=== PATIENT | female | born 1955 | race African-American/Black ===

== ENCOUNTER 2017-11-12 11:07 | Observation (INO) | payer OTHER ==
[2017-11-12 11:14] VITALS: BMI 32.1
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
[2017-11-12] MEDS ORDERED: LABETALOL HCL 5 MG/1 ML (100MG/20 ML VIAL) IVPUSH ONE (11:54)
[2017-11-12] MEDS ORDERED: ASPIRIN 81 MG CHEWABLE TABLETS PO ONE (11:54)
[2017-11-12] MEDS ORDERED: ASPIRIN 81 MG CHEWABLE TABLETS ONE (12:23)
[2017-11-12] MEDS ORDERED: LABETALOL HCL 5 MG/1 ML (200MG/40ML VIAL) IVPB ONE (12:23)
[2017-11-12 12:50] LABS: BASO % 0.7 % (0-2.0); EOS % 8.3 % (0-4.5); HEMATOCRIT 37.3 % (32.4-45.2); HEMOGLOBIN 12.1 GM/dL (10.7-15.3); MCH 27.7 pg (25.7-33.7); MCHC 32.5 g/dl (32.0-36.0); MEAN CELL VOLUME 85.2 fl (80-96); MEAN PLT VOLUME 8.1 fl (7.5-11.1); PLATELET COUNT 288 K/MM3 (134-434); RBC 4.38 M/mm3 (3.60-5.2); RDW 15.4 % (11.6-15.6); WHITE BLOOD COUNT 5.1 K/mm3 (4.0-10.0)
[2017-11-12 13:02] LABS: INR 1.07 (0.82-1.09); PROTHROMBIN TIME (PATIENT) 12.1 SEC (9.7-13.0)
[2017-11-12 13:38] LABS: ALBUMIN 3.7 g/dl (3.4-5.0); ANION GAP 5 (8-16); BLOOD UREA NITROGEN 16 mg/dL (7-18); CALCIUM 9.2 mg/dL (8.5-10.1); CHLORIDE 106 mmol/L (98-107); CO2 31 mmol/L (21-32); CREATININE 0.7 mg/dL (0.55-1.02); GLUCOSE,RANDOM 80 mg/dL (74-106); SGPT/ALT 24 U/L (12-78); SODIUM 142 mmol/L (136-145)
[2017-11-12 13:42] LABS: ALK PHOS 89 U/L (45-117); BILIRUBIN,TOTAL 0.3 mg/dL (0.2-1.0); N-TERMINAL BNP 220.95 pg/ml (5-125); TOT PROT 8.5 g/dl (6.4-8.2)
[2017-11-12 13:43] LABS: MAGNESIUM 2.1 mg/dL (1.8-2.4); POTASSIUM 4.6 mmol/L (3.5-5.1); SGOT/AST 30 U/L (15-37)
[2017-11-12 14:32] LABS: URINE APPEARANCE CLEAR; URINE BILIRUBIN NEGATIVE (<2.0 mg/dL); URINE COLOR LTYELLOW; URINE GLUCOSE (UA) NEGATIVE (NEGATIVE); URINE KETONE NEGATIVE (NEGATIVE); URINE LEUK ESTERASE NEGATIVE (NEGATIVE); URINE NITRITE NEGATIVE (NEGATIVE); URINE PROTEIN NEGATIVE (NEGATIVE); URINE UROBILINOGEN NEGATIVE mg/dL (0.2-1.0)
--- NOTE | 2017-11-12 19:07 | HP ---
<Clau Gregorio - Last Filed: 11/12/17 19:13> CHIEF COMPLAINT: HTN, back pain PCP:Dr. Vickers HISTORY OF PRESENT ILLNESS: Patient is a 62 y/o patient with a history of HTN and Hep C (unknown if treated ) who presented from emergency department for HTN of 198/130. She has not seen a PCP in 2 years and is not taking any medications. She reports she has also been having back pain for three weeks. She describes it as sharp in nature and non radiating. Medications do not help it. She has neve had pain like this in the past. Patient has no other complaints today. ER course was notable for: (1) EKG (2) (3) Recent Travel: no PAST MEDICAL HISTORY: HTN, Hep C ( unknown length) PAST SURGICAL HISTORY: R knee Social History: Smoking: denies Alcohol: denies Drugs: denies Family History: Allergies No Known Allergies Allergy (Verified 11/12/17 11:14) HOME MEDICATIONS: Home Medications Medication Instructions Recorded NK [No Known Home Medication] 11/12/17 REVIEW OF SYSTEMS CONSTITUTIONAL: Absent: fever, chills, diaphoresis, generalized weakness, malaise HEENT: Absent: rhinorrhea, nasal congestion, throat pain, CARDIOVASCULAR: Absent: syncope, palpitations, irregular heart rate, lightheadedness, peripheral edema, chest pain RESPIRATORY: Absent: cough, shortness of breath, dyspnea with exertion, orthopnea, GASTROINTESTINAL: Absent: abdominal pain, abdominal distension, nausea, vomiting, diarrhea, constipation MUSCULOSKELETAL: back pain Absent: myalgia, arthralgia, joint swelling, neck pain SKIN: Absent: rash, itching, pallor HEMATOLOGIC/IMMUNOLOGIC: Absent: easy bleeding, easy bruising, lymphadenopathy, NEUROLOGIC: Absent: headache, focal weakness or paresthesias, dizziness, unsteady gait, seizure, mental status changes Absent: anxiety, depression, suicidal or homicidal ideation, hallucinations. PHYSICAL EXAMINATION Vital Signs - 24 hr 11/12/17 11/12/17 11/12/17 11:10 12:40 13:38 Temperature 97.7 F Pulse Rate 84 Pulse Rate [ 69 Apical] Respiratory 18 20 Rate Blood Pressure 197/135 Blood Pressure 155/98 [Right Arm] O2 Sat by Pulse 99 100 100 Oximetry (%) 11/12/17 18:11 Temperature 98.0 F Pulse Rate Pulse Rate [ 95 H Apical] Respiratory 18 Rate Blood Pressure Blood Pressure 157/96 [Right Arm] O2 Sat by Pulse 98 Oximetry (%) GENERAL: Awake, alert, and fully oriented, in no acute distress. HEAD: Normal with no signs of trauma. EYES: Pupils equal, round and reactive to light, extraocular movements intact, sclera anicteric EARS, NOSE, THROAT: Ears normal, nares patent, oropharynx clear without exudates. Moist mucous membranes. NECK: Normal range of motion, supple without lymphadenopathy, LUNGS: Breath sounds equal, clear to auscultation bilaterally. No wheezes, and no crackles. No accessory muscle use. HEART: Regular rate and rhythm, normal S1 and S2 ABDOMEN: Soft, nontender, not distended, normoactive bowel sounds, no guarding, no rebound, no masses. MUSCULOSKELETAL: Normal range of motion at thoracic and lumbar joints, non reproducible pain UPPER EXTREMITIES: 2+ pulses, warm, well-perfused. No cyanosis. No peripheral edema. LOWER EXTREMITIES: 2+ pulses, warm, well-perfused. No calf tenderness. NEUROLOGICAL: Cranial nerves II-XII intact. Normal speech. PSYCHIATRIC: Cooperative. Good eye contact. SKIN: Warm, dry, normal turgor, no rashes or lesions noted Laboratory Results - last 24 hr 11/12/17 11/12/17 11/12/17 12:34 12:41 12:41 WBC 5.1 RBC 4.38 Hgb 12.1 Hct 37.3 MCV 85.2 MCH 27.7 MCHC 32.5 RDW 15.4 Plt Count 288 MPV 8.1 Absolute Neuts (auto) 2.3 Neutrophils % 45.0 Lymphocytes % 37.0 Monocytes % 9.0 Eosinophils % 8.3 H Basophils % 0.7 Nucleated RBC % 0 PT with INR 12.10 INR 1.07 Sodium Potassium Chloride Carbon Dioxide Anion Gap BUN Creatinine Creat Clearance w eGFR Random Glucose Calcium Magnesium Total Bilirubin AST ALT Alkaline Phosphatase Creatine Kinase Troponin I B-Natriuretic Peptide Total Protein Albumin Urine Color Ltyellow Urine Appearance Clear Urine pH 6.0 Ur Specific [place] 1.016 Urine Protein Negative Urine Glucose (UA) Negative Urine Ketones Negative Urine Blood Negative Urine Nitrite Negative Urine Bilirubin Negative Urine Urobilinogen Negative Ur Leukocyte Esterase Negative 11/12/17 11/12/17 12:41 17:30 WBC RBC Hgb Hct MCV MCH MCHC RDW Plt Count MPV Absolute Neuts (auto) Neutrophils % Lymphocytes % Monocytes % Eosinophils % Basophils % Nucleated RBC % PT with INR INR Sodium 142 Potassium 4.6 Chloride 106 Carbon Dioxide 31 Anion Gap 5 L BUN 16 Creatinine 0.7 Creat Clearance w eGFR > 60 Random Glucose 80 Calcium 9.2 Magnesium 2.1 Total Bilirubin 0.3 AST 30 ALT 24 Alkaline Phosphatase 89 Creatine Kinase 147 108 Troponin I 0.02 < 0.02 B-Natriuretic Peptide 220.95 H Total Protein 8.5 H Albumin 3.7 Urine Color Urine Appearance Urine pH Ur Specific [place] Urine Protein Urine Glucose (UA) Urine Ketones Urine Blood Urine Nitrite Urine Bilirubin Urine Urobilinogen Ur Leukocyte Esterase ASSESSMENT/PLAN: Patient is a 62 y/o patient with a history of HTN and Hep C who presented from emergency department for HTN. #HTN -IV lebetalol in ED - lopressor 25 BID - f/u Echo - f/u EKG, irregular changes on last one - F/u cardiac consult Paul - f/u trop, negative x2 - BNP 220.95 - monitor on tele obs - f/u UCX - Chest CTA: no aneyursm or dissection - CXR: no pathology, large heart #Hep C - unknown if treated, friends at bedside #Back pain -Tylenol prn -non reproducible pain Visit type - Emergency Visit Emergency Visit: Yes ED Registration Date: 11/12/17 Care time: The patient presented to the Emergency Department on the above date and was hospitalized for further evaluation of their emergent condition. - New Patient This patient is new to me today: Yes Date on this admission: 11/12/17 - Critical Care Critical Care patient: No Hospitalist Screening - Colonoscopy Questionnaire Colonoscopy Questionnaire: Colonoscopy Questionnaire - Patient: 50 - 75 years old and never had a screening colonoscopy: Unknown History of colon or rectal polyps, or CA: Unknown History of IBD, Crohn's disease or UC: Unknown History of abdominal radiation therapy as a child: Unknown - Relative: 1 with colon or rectal CA, or polyps at age 60 or younger: Unknown Colon or rectal CA diagnosed at age 45 or younger: Unknown Multiple relatives with colon or rectal CA: Unknown - Outcome: Screening Result: Negative Screen <[place] - Last Filed: 11/12/17 21:52> Patient presented with acute diffuse chest pain radiating to her back . CTA was done negative for dissection. Labetolol was given in ED. Presented with blood pressure of 197/135. Currently the BP is better controlled , given Labetelol x 1 dose. will continue with Lopressor since patient is also c/o having Chest pain, r/o ACS , CE q6x2, EKG in am . Cardio consult in am. Vital Signs Temperature 98.0 F 11/12/17 18:11 Pulse Rate 95 H 11/12/17 18:11 Respiratory Rate 18 11/12/17 18:11 Blood Pressure 157/96 11/12/17 18:11 O2 Sat by Pulse Oximetry (%) 98 11/12/17 18:11 CBCD WBC 5.1 K/mm3 (4.0-10.0) 11/12/17 12:41 RBC 4.38 M/mm3 (3.60-5.2) 11/12/17 12:41 Hgb 12.1 GM/dL (10.7-15.3) 11/12/17 12:41 Hct 37.3 % (32.4-45.2) 11/12/17 12:41 MCV 85.2 fl (80-96) 11/12/17 12:41 MCHC 32.5 g/dl (32.0-36.0) 11/12/17 12:41 RDW 15.4 % (11.6-15.6) 11/12/17 12:41 Plt Count 288 K/MM3 (134-434) 11/12/17 12:41 MPV 8.1 fl (7.5-11.1) 11/12/17 12:41 CMP Sodium 142 mmol/L (136-145) 11/12/17 12:41 Potassium 4.6 mmol/L (3.5-5.1) 11/12/17 12:41 Chloride 106 mmol/L (98-107) 11/12/17 12:41 Carbon Dioxide 31 mmol/L (21-32) 11/12/17 12:41 Anion Gap 5 (8-16) L 11/12/17 12:41 BUN 16 mg/dL (7-18) 11/12/17 12:41 Creatinine 0.7 mg/dL (0.55-1.02) 11/12/17 12:41 Creat Clearance w eGFR > 60 (>60) 07/08/18 12:41 Random Glucose 80 mg/dL (74-106) 11/12/17 12:41 Calcium 9.2 mg/dL (8.5-10.1) 11/12/17 12:41 Total Bilirubin 0.3 mg/dL (0.2-1.0) 11/12/17 12:41 AST 30 U/L (15-37) 11/12/17 12:41 ALT 24 U/L (12-78) 11/12/17 12:41 Alkaline Phosphatase 89 U/L (45-117) 11/12/17 12:41 Total Protein 8.5 g/dl (6.4-8.2) H 11/12/17 12:41 Albumin 3.7 g/dl (3.4-5.0) 11/12/17 12:41 CARDIAC ENZYMES Creatine Kinase 108 IU/L (26-192) 11/12/17 17:30 Troponin I < 0.02 ng/ml (0.00-0.05) 11/12/17 17:30 Current Medications Generic Name Dose Route Start Last Admin Trade Name Freq PRN Reason Stop Dose Admin Metoprolol Tartrate 25 mg 11/12/17 22:00 Lopressor - PO BID [facility] Home Medications Medication Instructions Recorded NK [No Known Home Medication] 11/12/17 Hospitalist Screening - Colonoscopy Questionnaire Colonoscopy Questionnaire: Colonoscopy Questionnaire
[2017-11-12] MEDS ORDERED: ACETAMINOPHEN 325 MG TABLET (FP) PO ONE (19:45)
[2017-11-12] MEDS ORDERED: ACETAMINOPHEN 325 MG TABLET (FP) ONE (19:50)
[2017-11-12] MEDS ORDERED: METOPROLOL TARTRATE 25 MG TABLET (FP) ONE (22:23)
[2017-11-12] MEDS: METOPROLOL TARTRATE 25 MG TABLET (FP) PO SCH (22:30)
[2017-11-13 06:17] LABS: HEMATOCRIT 35.3 % (32.4-45.2); HEMOGLOBIN 11.6 GM/dL (10.7-15.3); MCH 27.8 pg (25.7-33.7); MCHC 32.8 g/dl (32.0-36.0); MEAN CELL VOLUME 84.9 fl (80-96); MEAN PLT VOLUME 7.8 fl (7.5-11.1); PLATELET COUNT 249 K/MM3 (134-434); RBC 4.16 M/mm3 (3.60-5.2); RDW 15.5 % (11.6-15.6); WHITE BLOOD COUNT 4.4 K/mm3 (4.0-10.0)
[2017-11-13 07:04] LABS: ANION GAP 6 (8-16); BLOOD UREA NITROGEN 16 mg/dL (7-18); CALCIUM 8.7 mg/dL (8.5-10.1); CHLORIDE 109 mmol/L (98-107); CO2 28 mmol/L (21-32); CREATININE 0.7 mg/dL (0.55-1.02); GLUCOSE,RANDOM 78 mg/dL (74-106); SODIUM 143 mmol/L (136-145)
--- NOTE | 2017-11-13 09:11 | EKG ---
Test Reason : Blood Pressure : / mmHG Vent. Rate : 060 BPM Atrial Rate : 060 BPM P-R Int : 166 ms QRS Dur : 080 ms QT Int : 440 ms P-R-T Axes : 049 -34 143 degrees QTc Int : 440 ms NORMAL SINUS RHYTHM POSSIBLE LEFT ATRIAL ENLARGEMENT LEFT ANTERIOR FASCICULAR BLOCK LEFT VENTRICULAR HYPERTROPHY CANNOT RULE OUT SEPTAL INFARCT , AGE UNDETERMINED --MAY BE LVH RELATED T WAVE ABNORMALITY, CONSIDER ANTEROLATERAL ISCHEMIA ABNORMAL ECG NO PREVIOUS ECGS AVAILABLE Confirmed by CARMEN PEREZ MD ([id number]) on 11/13/2017 9:11:27 AM Referred By: Confirmed By:CARMEN PEREZ MD
[2017-11-13] MEDS ORDERED: METOPROLOL TARTRATE 25 MG TABLET (FP) ONE (09:47)
[2017-11-13] MEDS: METOPROLOL TARTRATE 25 MG TABLET (FP) PO SCH (09:59)
--- NOTE | 2017-11-13 10:11 | PN ---
Physical Exam: SUBJECTIVE: Patient seen and examined OBJECTIVE: Vital Signs Period Temp Pulse Resp BP Sys/Kurtz Pulse Ox Last 24 Hr 97.7 F-98.0 F 69-95 18-20 155-197/96-135 98-100 GENERAL: The patient is awake, alert, and fully oriented, in no acute distress. HEAD: Normal with no signs of trauma. EYES: PERRL, extraocular movements intact, sclera anicteric, conjunctiva clear. No ptosis. ENT: Ears normal, nares patent, oropharynx clear without exudates, moist mucous membranes. NECK: Trachea midline, full range of motion, supple. LUNGS: Breath sounds equal, clear to auscultation bilaterally, no wheezes, no crackles, no accessory muscle use. HEART: Regular rate and rhythm, S1, S2 without murmur, rub or gallop. ABDOMEN: Soft, nontender, nondistended, normoactive bowel sounds, no guarding, no rebound, no hepatosplenomegaly, no masses. EXTREMITIES: 2+ pulses, warm, well-perfused, no edema. NEUROLOGICAL: Cranial nerves II through XII grossly intact. Normal speech, gait not observed. PSYCH: Normal mood, normal affect. SKIN: Warm, dry, normal turgor, no rashes or lesions noted Laboratory Results - last 24 hr 11/12/17 11/12/17 11/12/17 12:34 12:41 12:41 WBC 5.1 RBC 4.38 Hgb 12.1 Hct 37.3 MCV 85.2 MCH 27.7 MCHC 32.5 RDW 15.4 Plt Count 288 MPV 8.1 Absolute Neuts (auto) 2.3 Neutrophils % 45.0 Lymphocytes % 37.0 Monocytes % 9.0 Eosinophils % 8.3 H Basophils % 0.7 Nucleated RBC % 0 PT with INR 12.10 INR 1.07 Sodium Potassium Chloride Carbon Dioxide Anion Gap BUN Creatinine Creat Clearance w eGFR Random Glucose Calcium Magnesium Total Bilirubin AST ALT Alkaline Phosphatase Creatine Kinase Troponin I B-Natriuretic Peptide Total Protein Albumin Urine Color Ltyellow Urine Appearance Clear Urine pH 6.0 Ur Specific [place] 1.016 Urine Protein Negative Urine Glucose (UA) Negative Urine Ketones Negative Urine Blood Negative Urine Nitrite Negative Urine Bilirubin Negative Urine Urobilinogen Negative Ur Leukocyte Esterase Negative 11/12/17 11/12/17 11/13/17 12:41 17:30 00:50 WBC RBC Hgb Hct MCV MCH MCHC RDW Plt Count MPV Absolute Neuts (auto) Neutrophils % Lymphocytes % Monocytes % Eosinophils % Basophils % Nucleated RBC % PT with INR INR Sodium 142 Potassium 4.6 Chloride 106 Carbon Dioxide 31 Anion Gap 5 L BUN 16 Creatinine 0.7 Creat Clearance w eGFR > 60 Random Glucose 80 Calcium 9.2 Magnesium 2.1 Total Bilirubin 0.3 AST 30 ALT 24 Alkaline Phosphatase 89 Creatine Kinase 147 108 Troponin I 0.02 < 0.02 0.02 B-Natriuretic Peptide 220.95 H Total Protein 8.5 H Albumin 3.7 Urine Color Urine Appearance Urine pH Ur Specific [place] Urine Protein Urine Glucose (UA) Urine Ketones Urine Blood Urine Nitrite Urine Bilirubin Urine Urobilinogen Ur Leukocyte Esterase 11/13/17 11/13/17 11/13/17 05:50 05:50 05:50 WBC 4.4 RBC 4.16 Hgb 11.6 Hct 35.3 MCV 84.9 MCH 27.8 MCHC 32.8 RDW 15.5 Plt Count 249 MPV 7.8 Absolute Neuts (auto) Neutrophils % Lymphocytes % Monocytes % Eosinophils % Basophils % Nucleated RBC % PT with INR INR Sodium 143 Potassium 4.0 Chloride 109 H Carbon Dioxide 28 Anion Gap 6 L BUN 16 Creatinine 0.7 Creat Clearance w eGFR > 60 Random Glucose 78 Calcium 8.7 Magnesium Total Bilirubin AST ALT Alkaline Phosphatase Creatine Kinase Troponin I 0.02 B-Natriuretic Peptide Total Protein Albumin Urine Color Urine Appearance Urine pH Ur Specific [place] Urine Protein Urine Glucose (UA) Urine Ketones Urine Blood Urine Nitrite Urine Bilirubin Urine Urobilinogen Ur Leukocyte Esterase Active Medications Generic Name Dose Route Start Last Admin Trade Name Markq PRN Reason Stop Dose Admin Metoprolol Tartrate 25 mg 11/12/17 22:00 11/13/17 09:59 Lopressor - PO 25 mg BID MARKUS Administration ASSESSMENT/PLAN:
[2017-11-13] MEDS ORDERED: amLODIPine BESYLATE 5 MG TABLET (FP) PO SCH (10:30)
[2017-11-13] MEDS ORDERED: amLODIPine BESYLATE 5 MG TABLET (FP) ONE (10:46)
--- NOTE | 2017-11-13 12:29 | CON.CARD ---
Consult Consult Specialty:: Cardiology Referred by:: Hospitalist Medicine Reason for Consultation:: Hypertensive urgency - History of Present Illness Chief Complaint: Elevated BP History of Present Illness: Patient is a 62 y/o patient with a history of HTN and Hep C (unknown if treated ) who presented from emergency department for several weeks of upper back pain for last 3 richie, HTN of 198/130. She has not seen a PCP in 2 years and is not taking any medications. She describes it as sharp in nature and non radiating, tylenolol as needed provides relief, chest CTA ruled out for dissection, she denies dyspnea, near or true syncope, palpitations, orthopnea, PND or LE edema. - History Source History Provided By: Patient Limitations to Obtaining History: No Limitations - Alcohol/Substance Use Hx Alcohol Use: No - Smoking History Smoking history: Never smoked Have you smoked in the past 12 months: No Home Medications - Allergies Allergies/Adverse Reactions: Allergies Allergy/AdvReac Type Severity Reaction Status Date / Time No Known Allergies Allergy Verified 11/12/17 11:14 - Home Medications Home Medications: Ambulatory Orders NK [No Known Home Medication] 11/12/17 Review of Systems - Review of Systems Musculoskeletal: reports: Back Pain Vital Signs: Vital Signs Temperature 97.8 F 11/13/17 06:54 Pulse Rate 69 11/13/17 06:54 Respiratory Rate 18 11/12/17 22:32 Blood Pressure 171/101 11/13/17 06:54 O2 Sat by Pulse Oximetry (%) 99 11/13/17 06:54 Constitutional: Yes: No Distress, Calm Neck: Yes: Supple Respiratory: Yes: Regular, CTA Bilaterally Gastrointestinal: Yes: Normal Bowel Sounds, Soft Cardiovascular: Yes: Regular Rate and Rhythm JVD: No Carotid Bruit: No Heart Sounds: Yes: S1, S2 Murmur: Yes: Systolic Murmur, Grade 1 Edema: No - Other Data Labs, Other Data: CBC, BMP 11/13/17 05:50 11/13/17 05:50 INR, PTT INR 1.07 (0.82-1.09) 11/12/17 12:34 Troponin, BNP 11/12/17 11/12/17 11/13/17 12:41 17:30 00:50 Troponin I 0.02 < 0.02 0.02 B-Natriuretic Peptide 220.95 H 11/13/17 05:50 Troponin I 0.02 B-Natriuretic Peptide Troponin, BNP 11/12/17 11/12/17 11/13/17 12:41 17:30 00:50 Troponin I 0.02 < 0.02 0.02 B-Natriuretic Peptide 220.95 H 11/13/17 05:50 Troponin I 0.02 B-Natriuretic Peptide NSR @ 60 LAE, LVH with anterolateral TWI Imaging - Results Chest X-ray: Report Reviewed (NAD) Problem List - Problems (1) Uncontrolled hypertension Code(s): I10 - ESSENTIAL (PRIMARY) HYPERTENSION (2) Left ventricular hypertrophy Code(s): I51.7 - CARDIOMEGALY Assessment/Plan 11/13/2017 Echo: Normal LV size and fxn, mild cLVH LVEF 55-60% mild MR, TR 1. Hypertensive urgency improving 2. Upper back pain ruled out for dissection 3. H/o hep C P:1. Continue Lopressor and Norvasc with uptitration as tolerated 2. Ruled out for LA, september d/c from CV-standpoint with outpatient f/u HTN 3. Tylenol as needed for back pain 4. Thank you for consultative opportunity
--- NOTE | 2017-11-13 13:54 | PN ---
Teaching Attending Note Name of Resident: Taylor Ag ATTENDING PHYSICIAN STATEMENT I saw and evaluated the patient. I reviewed the resident's note and discussed the case with the resident. I agree with the resident's findings and plan as documented. SUBJECTIVE: Patient has no complaints. She denies chest pain, palpitations, SOB. OBJECTIVE: Vital Signs Period Temp Pulse Resp BP Sys/Kurtz Pulse Ox Last 24 Hr 97.8 F-98.0 F 68-95 18-18 155-171/96-105 96-99 HEART: S1S2, RRR LUNGS: Clear ABDOMEN: Obese, soft, non-tender, non-distended, normal BS EXTREMITIES: No edema Laboratory Results - last 24 hr 11/12/17 11/12/17 11/12/17 12:41 12:41 17:30 WBC RBC Hgb Hct MCV MCH MCHC RDW Plt Count MPV Sodium Potassium Chloride Carbon Dioxide Anion Gap BUN Creatinine Creat Clearance w eGFR Random Glucose Calcium Creatine Kinase 147 108 Troponin I < 0.02 Urine Color Ltyellow Urine Appearance Clear Urine pH 6.0 Ur Specific [place] 1.016 Urine Protein Negative Urine Glucose (UA) Negative Urine Ketones Negative Urine Blood Negative Urine Nitrite Negative Urine Bilirubin Negative Urine Urobilinogen Negative Ur Leukocyte Esterase Negative 11/13/17 11/13/17 11/13/17 00:50 05:50 05:50 WBC 4.4 RBC 4.16 Hgb 11.6 Hct 35.3 MCV 84.9 MCH 27.8 MCHC 32.8 RDW 15.5 Plt Count 249 MPV 7.8 Sodium 143 Potassium 4.0 Chloride 109 H Carbon Dioxide 28 Anion Gap 6 L BUN 16 Creatinine 0.7 Creat Clearance w eGFR > 60 Random Glucose 78 Calcium 8.7 Creatine Kinase Troponin I 0.02 Urine Color Urine Appearance Urine pH Ur Specific [place] Urine Protein Urine Glucose (UA) Urine Ketones Urine Blood Urine Nitrite Urine Bilirubin Urine Urobilinogen Ur Leukocyte Esterase 11/13/17 05:50 WBC RBC Hgb Hct MCV MCH MCHC RDW Plt Count MPV Sodium Potassium Chloride Carbon Dioxide Anion Gap BUN Creatinine Creat Clearance w eGFR Random Glucose Calcium Creatine Kinase Troponin I 0.02 Urine Color Urine Appearance Urine pH Ur Specific [place] Urine Protein Urine Glucose (UA) Urine Ketones Urine Blood Urine Nitrite Urine Bilirubin Urine Urobilinogen Ur Leukocyte Esterase Current Medications Generic Name Dose Route Start Last Admin Trade Name Freq PRN Reason Stop Dose Admin Amlodipine Besylate 5 mg 11/13/17 10:30 11/13/17 10:51 Norvasc - PO 5 mg DAILY MARKUS Administration Metoprolol Tartrate 25 mg 11/12/17 22:00 11/13/17 09:59 Lopressor - PO 25 mg BID MARKUS Administration ASSESSMENT AND PLAN: This is a 62 year old woman with a history of HTN, hepatitis C who presented to the ED from urgent care because of high BP and abnormal EKG. 1. Hypertensive urgency - Improving 2. HTN, uncontrolled - Continue Norvasc, Lopressor 3. Hepatitis C 4. Obesity with BMI 32.1 5. Disposition - Ok for discharge home on Norvasc, Lopressor with outpatient follow up
[2017-11-13 14:33] VITALS: BP 159/10; PULSE 65; TEMP 98.2
--- NOTE | 2017-11-13 15:03 | DS ---
Physical Exam: SUBJECTIVE: Patient seen and examined. feels better. back improved since yesterday. denies palpitations, chest pain, sob, headache, blurry vision. OBJECTIVE: Vital Signs Period Temp Pulse Resp BP Sys/Kurtz Pulse Ox Last 24 Hr 97.8 F-98.2 F 65-95 18-18 155-171/10-105 96-99 PHYSICAL EXAM GENERAL: The patient is awake, alert, and fully oriented, in no acute distress. HEAD: Normal with no signs of trauma. EYES: PERRL, extraocular movements intact, sclera anicteric, conjunctiva clear. ENT: Ears normal, nares patent, oropharynx clear without exudates, moist mucous membranes. NECK: Trachea midline, full range of motion, supple. LUNGS: Breath sounds equal, clear to auscultation bilaterally, no wheezes, no crackles, no accessory muscle use. HEART: Regular rate and rhythm, S1, S2 without murmur, rub or gallop. ABDOMEN: Soft, nontender, nondistended, normoactive bowel sounds, no guarding, no rebound, no hepatosplenomegaly, no masses. EXTREMITIES: 2+ radial and DP, pulses, warm, well-perfused, no edema. well healed scar on left knee NEUROLOGICAL: Cranial nerves II through XII grossly intact. Normal speech, gait not observed. 5/5 hip extension b/l and 5/5 hand rn relief charge PSYCH: Normal mood, normal affect. SKIN: Warm, dry, normal turgor, no rashes or lesions noted. LABS Laboratory Results - last 24 hr 11/12/17 11/13/17 11/13/17 17:30 00:50 05:50 WBC 4.4 RBC 4.16 Hgb 11.6 Hct 35.3 MCV 84.9 MCH 27.8 MCHC 32.8 RDW 15.5 Plt Count 249 MPV 7.8 Sodium Potassium Chloride Carbon Dioxide Anion Gap BUN Creatinine Creat Clearance w eGFR Random Glucose Calcium Creatine Kinase 108 Troponin I < 0.02 0.02 11/13/17 11/13/17 05:50 05:50 WBC RBC Hgb Hct MCV MCH MCHC RDW Plt Count MPV Sodium 143 Potassium 4.0 Chloride 109 H Carbon Dioxide 28 Anion Gap 6 L BUN 16 Creatinine 0.7 Creat Clearance w eGFR > 60 Random Glucose 78 Calcium 8.7 Creatine Kinase Troponin I 0.02 CXY: no acute pathology, large heart, right cervical rib CT/Abdomin/Pelvis CTA with contrast Impression: Normal size and enhancement of the thoracic and abdominal aorta without evidence of aneurysmal dilatation or dissection. Tortuous proximal abdominal aorta. No acute lung disease is present. Moderate to large hernia with the gastric fundus and body up in the chest and minimal atelectatic changes in the adjacent left lower lung, medially. Likely small left renal cyst. Tiny fat-containing umbilical hernia. Significantly enlarged fibroid uterus, as described above Echo 11/13/2017 interpretation summary: technically limited study with some of the views suboptimal the left ventricle is normal in size, thereis mild concentric left ventricle hypertrophy, left ventricular systolic function is normal, ejection fraction 55- 60%, the right ventricular systolic function is normal, normal right and left atria, right ventricular systolic pressure is normal. no effusion. HOSPITAL COURSE: Date of Admission:11/12/17 - Date of Discharge: 11/13/17 62 yr old woman with HTN with no medical follow-up in last years presented to urgent care center for right back pain located under the right scapula and found to have elevated BP and irregular EKG. EKG obtained from Urgent care shows a rate of 70 BPM, Sinus rhythm. L axis deviation. Normal intervals. T wave inversions in leads I, V4, V5, V6.She was then referred to ED for further evaluation. She was investigated for aortic dissection with a CTA and was not found to have one. Summary of report listed above. BP improved with lopressor push in the ED and metoprolol 25mg po bid, also started on norvasc 5mg po in the morning. Serial troponins x 4 were negative. Repeat EKG NSR, left axis deviation, left ventricular hypertrophy without any significant changes. Patient stable for outpatient follow-up with PCP and cardiology. Started on metoprolol BID and norvasc, appointment made at [facility] for repeat BP check tomorrow. Minutes to complete discharge: 35 Discharge Summary Reason For Visit: UNCONTROLLED HTN, ACUTE ELECTROCARDIOGRAPHY CHNGES Current Active Problems Acute electrocardiogram changes (Acute) Hypertensive urgency (Acute) Condition: Stable - Instructions Diet, Activity, Other Instructions: You were admitted for high blood pressure. You are being started on Amlodipine(Norvasc) 5mg, take 1 tablet by mouth every day and Metoprolol 25mg take 1 tablet in the morning and one at night. Please do not miss your medications. Prescriptions have been sent to the pharmacy. Follow a low sodium diet and continue activity as tolerated. Please make an appointment with the upper lining cementer in one week for post-hospital evaluation. Please go to the [facility] tomorrow to have your blood pressure checked, an appointment has been made for you 9:30am. Contact information has been provided. Please call to make or change appointments. If you develop chest pain, trouble breathing, blurry vision, worsening head ache , slurring speech or any other new symptom please return to the hospital. Referrals: [facility] [place] [facility] [place] [Provider Group] Vj Miller MD [Staff Physician] - Disposition: HOME - Home Medications Comprehensive Discharge Medication List: Ambulatory Orders Amlodipine Besylate [Norvasc -] 5 mg PO DAILY #30 tablet 11/13/17 Metoprolol Tartrate [Lopressor -] 25 mg PO BID #60 tablet 11/13/17 This patient is new to me today: Yes Date on this admission: 11/13/17 Emergency Visit: No Critical Care patient: No - Discharge Referral Referred to [facility] No
--- NOTE | 2017-11-13 15:04 | EKG ---
Test Reason : Blood Pressure : / mmHG Vent. Rate : 068 BPM Atrial Rate : 068 BPM P-R Int : 164 ms QRS Dur : 082 ms QT Int : 434 ms P-R-T Axes : 049 -30 147 degrees QTc Int : 461 ms NORMAL SINUS RHYTHM POSSIBLE LEFT ATRIAL ENLARGEMENT LEFT AXIS DEVIATION LEFT VENTRICULAR HYPERTROPHY ABNORMAL ECG WHEN COMPARED WITH ECG OF 12-NOV-2017 12:48, NO SIGNIFICANT CHANGE WAS FOUND Confirmed by CUATE JUSTICE MD ([id number]) on 11/13/2017 3:04:13 PM Referred By: CARLOS MAS DR Confirmed By:CUATE JUSTICE MD
== END 2017-11-13 15:15 | disposition home or self-care (01) ==
LOC: JER 11:07 → JERBED 17:55
PROVIDERS: ADMIT Internal Medicine; ATTEND Internal Medicine
PROC: 3E033GC Introduction of Other Therapeutic Substance into Peripheral Vein, Percutaneous Approach (ICD-10-PCS; principal; 2017-11-12)
DX: I16.0 Hypertensive urgency (principal); I11.9 Hypertensive heart disease without heart failure; R94.31 Abnormal electrocardiogram [ECG] [EKG]; B18.2 Chronic viral hepatitis C; M54.9 Dorsalgia, unspecified; Z91.14 Patient's other noncompliance with medication regimen
CPT/HCPCS: 36415; 71045-TC-FY; 71275-TC; 74174-TC; 80048; 80053; 81003; 82550; 83735; 83880; 84484; 85025; 85027; 85610; 87086; 93005; 93010; 93306-TC; 99285-25; G0378